=== PATIENT | female | born 1965 ===

== ENCOUNTER 2017-09-13 11:37 | Outpatient (CLI) | payer OTHER ==
[~2017-09-13 11:37] MED LIST: AVAPRO300 MG; KETO10TA2 PO; NORVASC2.5 M1; ORPH100T PO
== END 2017-09-13 11:55 | disposition home or self-care (01) ==
LOC: SONOGRAMA 11:37
DX: M12.9 Arthropathy, unspecified (principal); M17.0 Bilateral primary osteoarthritis of knee